=== PATIENT | female | born 1950 | race Hispanic/Latino ===

== ENCOUNTER 2022-03-08 12:56 | Emergency (ER) | payer MEDICARE ==
[~2022-03-08] VITALS: Ht 160 cm; Wt 65.8 kg
[2022-03-08] MEDS ORDERED: ACETAMINOPHEN 500 MG TABLET PO ONE (13:30)
[2022-03-08] MEDS ORDERED: ACETAMINOPHEN 500 MG TABLET ONE (13:35)
[2022-03-08] MEDS ORDERED: ONDANSETRON 4MG INJ IVP ONE (14:00)
[2022-03-08] MEDS ORDERED: MORPHINE 4 MG SYG IVP ONE (14:00)
[2022-03-08] MEDS ORDERED: TIZANIDINE HCL 2 MG TABLET PO SCH (14:30)
[2022-03-08] MEDS ORDERED: KETOROLAC 30MG VIAL (30MG/ML) IM ONE (14:30)
[2022-03-08] MEDS ORDERED: NAPR220C15 PO (14:50)
[2022-03-08 15:21] VITALS: BP 135/62
== END 2022-03-08 15:22 | disposition home or self-care (01) ==
LOC: EDH 12:56
DX: S80.212A Abrasion, left knee, initial encounter (principal); M25.562 Pain in left knee; E11.9 Type 2 diabetes mellitus without complications; Z90.710 Acquired absence of both cervix and uterus; Z90.49 Acquired absence of other specified parts of digestive tract; Z90.89 Acquired absence of other organs; W10.8XXA Fall (on) (from) other stairs and steps, initial encounter; Y93.01 Activity, walking, marching and hiking; Y99.8 Other external cause status; Y92.89 Other specified places as the place of occurrence of the external cause
CPT/HCPCS: 99283; 29505; 73562; 96372; J1885